=== PATIENT | male | born 1975 | race African-American/Black ===

== ENCOUNTER 2019-01-02 09:12 | Emergency (ER) | payer MEDICAID ==
[~2019-01-02] VITALS: Ht 177.8 cm; Wt 91.0 kg
[2019-01-02] MEDS ORDERED: TETANUS AND DIPHTHERIA TOX/PF 0.5ML SYR (ADULT) IM ONE (09:45)
[2019-01-02] MEDS ORDERED: BACITRACIN ZINC OINT UDPKT TOP ONE (09:45)
[2019-01-02] MEDS ORDERED: LIDOCAINE HCL/PF 1% 10 MG/ML 5ML VIAL IJ ONE (09:45)
[2019-01-02] MEDS ORDERED: IBUPROFEN 600MG TABLET PO ONE (09:45)
[2019-01-02] MEDS ORDERED: TETANUS, DIPHTHERIA, PERTUSSIS VAC/PF 0.5ML (>7YR OLD) IM ONE (10:15)
[2019-01-02] MEDS ORDERED: BACITRACIN 15GM TUBE TOP ONE (11:00)
[2019-01-02 11:40] VITALS: BP 122/87
== END 2019-01-02 12:10 | disposition home or self-care (01) ==
LOC: ER 09:12
DX: S61.211A Laceration without foreign body of left index finger without damage to nail, initial encounter (principal); W26.8XXA Contact with other sharp object(s), not elsewhere classified, initial encounter; Y93.89 Activity, other specified; Y92.89 Other specified places as the place of occurrence of the external cause; Y99.8 Other external cause status
CPT/HCPCS: 12001; 73140; 90471; 90715; 99283; J3490; Z7610; 90714